=== PATIENT | female | born 1965 | race Hispanic/Latino ===

== ENCOUNTER → 2020-06-19 | Outpatient (CLI) | payer BC ==
[~2020-06-19] MED LIST: CARVEDILOL3.125 MG PO; CARVEDILOL6.25 MG PO; CLARITIN10 M2 PO; FLONASE PO; GLIMEPIRIDE1 MG PO; JANUMET 50-1,01 EACH PO; JANUMET XR 1001 EACH PO; ULTRAM50 MG PO
== END ==
LOC: US 11:54
PROVIDERS: ATTEND Family Medicine
DX: R10.11 Right upper quadrant pain (principal)
CPT/HCPCS: 76700